=== PATIENT | male | born 1985 | race Two or more races ===

== ENCOUNTER 2023-05-23 13:51 | Emergency (ER) | payer OTHER ==
[~2023-05-23] VITALS: Ht 172.7 cm; Wt 85.0 kg
[2023-05-23 16:13] LABS: Basophils # (auto) 0 10 ^3/uL (0-0.2); Basophils % (auto) 0.9 % (0.0-2.0); Eosinophils # (auto) 0.1 10 ^3/uL (0-0.8); Hematocrit 44.9 % (41.0-53.0); Lymphocytes # (auto) 2.3 10 ^3/uL (0.4-5.4); Lymphocytes % (auto) 49.8 % (10.0-50.0); Mean Corpuscular Hgb Conc. 33.4 g/dL (32.0-36.0); Mean Corpuscular Volume 80.8 fL (80.0-100.0); Monocytes # (auto) 0.3 10 ^3/uL (0-1.3); Monocytes % (auto) 6.3 % (0.0-12.0); Neutrophils # (auto) 1.9 10 ^3/uL (1.6-8.6); Nucleated Red Blood Cells % 0.3 %; Red Blood Cells 5.56 10^6/uL (4.5-5.90); Red Cell Distribution Width 13.3 % (11.8-14.3); White Blood Cell 4.6 10^3/uL (4.4-10.8)
[2023-05-23 16:36] LABS: Alanine Aminotransferase 39 U/L (7-40); Albumin 4.9 g/dL (3.2-4.8); Alkaline Phosphatase 71 U/L (46-116); Anion Gap 7.7 (5-15); Aspartate Aminotransferase 20 U/L (13-40); Bilirubin, Total 0.7 mg/dL (0.2-1.0); Calcium 9.4 mg/dL (8.7-10.4); Carbon Dioxide 26.3 mmol/L (20-30); Chloride 105 mmol/L (98-107); Glucose 90 mg/dL (74-106); Sodium 139 mmol/L (136-145); Total Protein 7.6 g/dL (5.7-8.2)
[2023-05-23 16:46] LABS: Blood Urea Nitrogen < 5 mg/dL (9-23)
[2023-05-23 18:31] VITALS: BP 129/80; PULSE 69; RESP 16; O2SAT 98
== END 2023-05-23 18:36 | disposition home or self-care (01) ==
LOC: ER 13:51
DX: R10.9 Unspecified abdominal pain (principal); K59.00 Constipation, unspecified; R11.0 Nausea; Z87.891 Personal history of nicotine dependence
CPT/HCPCS: 36415; 74176; 80053; 83690; 85025